=== PATIENT | male | born 1970 | race American Indian/Alaskan Native ===

== ENCOUNTER 2017-12-05 11:39 | Emergency (ER) | payer OTHER ==
[2017-12-05] MEDS ORDERED: BOOSTRIX IM ONE (12:30)
[2017-12-05] MEDS ORDERED: TYLENOL PO ONE (12:30)
[2017-12-05] MEDS ORDERED: XYLOCAINE 1% 20 mL INFILTRATI ONE (12:31)
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
[2017-12-05] MEDS ORDERED: TRIPLE ANTIBIOTIC TP ONE (13:37)
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
--- NOTE | 2017-12-05 14:32 | XRay Report ---
RIGHT KNEE, 2 views: History: Right knee pain. The bony architecture is intact without evidence of fracture or dislocation. No significant soft tissue abnormality is seen. IMPRESSION: Right knee within normal limits.
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
[2017-12-05 16:30] VITALS: BP 132/85
== END 2017-12-05 16:34 ==
LOC: ED 11:39
DX: S81.011A Laceration without foreign body, right knee, initial encounter (principal); S01.119A Laceration without foreign body of unspecified eyelid and periocular area, initial encounter; I10 Essential (primary) hypertension; F17.200 Nicotine dependence, unspecified, uncomplicated; Z88.1 Allergy status to other antibiotic agents; V89.2XXA Person injured in unspecified motor-vehicle accident, traffic, initial encounter; Y93.89 Activity, other specified; Y92.89 Other specified places as the place of occurrence of the external cause; Y99.8 Other external cause status
CPT/HCPCS: 70450; 72125; 90471; 90715; 99284; A6250